=== PATIENT | male | born 1940 | race Caucasian/White ===

== ENCOUNTER 2020-05-16 05:33 | Day surgery (SDC) | payer MEDICARE, OTHER ==
[2020-05-15 15:30] LABS: BASOPHILS 0.3 % (0-2); EOSINOPHILS 4.2 % (0-7); HEMATOCRIT 36.1 % (42.0-54.0); HEMOGLOBIN 11.6 g/dL (13.5-17.5); IMMATURE GRANULOCYTES 0.6 % (0-5); LYMPHOCYTES 19.6 % (15-50); MCH 33.7 pg (26.0-34.0); MCHC 32.1 g/dL (31.0-37.0); MCV 104.9 fL (80.0-100.0); MEAN PLATELET VOLUME 9.7 fL (7.4-10.4); MONOCYTES 15.6 % (2-11); NEUTROPHILS 59.7 % (40-80); PLATELET COUNT 242 10x3/uL (130-400); RBC 3.44 10x6/uL (4.20-6.10); WBC 9.1 10x3/uL (4.8-10.8)
[2020-05-15 15:40] LABS: INR 0.94 (0.85-1.17); PROTIME 12.5 SECONDS (11.6-15.0)
[2020-05-15 16:02] LABS: ANION GAP 10.9 mmol/L (8-16); CALCIUM 9.4 mg/dL (8.5-10.1); CARBON DIOXIDE 28.1 mmol/L (21.0-32.0); CREATININE - SERUM 5.9 mg/dL (0.6-1.3)
[~2020-05-16] VITALS: Ht 174 cm; Wt 77.6 kg
[~2020-05-16 05:33] MED LIST: ALLER-CHLOR4 MG PO; BAYER CHEWABLE81 MG PO; FISH OIL 1,0001 CA1 PO; HYDROCODON-ACE1 EAC7 PO; ISOSORBIDE DINI30 MG PO; LASIX80 MG PO; LISINOPRIL40 MG PO; NEPHRO-VITE RX1 TAB; NORVASC10 MG PO; OMEPRAZOLE40 MG PO; PHOSLO667 MG PO; PLAVIX75 MG PO; RENVELA800 MG PO; TOPROL XL25 MG PO; ZOCOR40 MG PO; ZYLOPRIM100 MG PO
[2020-05-16 06:48] VITALS: Ht 174 cm; Wt 77.6 kg
[2020-05-16] MEDS ORDERED: ULTRAM50 MG PO (11:48)
--- NOTE | 2020-05-18 08:13 | OP ---
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 OPERATION PERFORMED: Open revision without thrombectomy of left arm brachiocephalic arteriovenous fistula and fistulogram. SURGEON: Melody Burns MD ANESTHESIA: General endotracheal per LEASING MANAGER. REFERRING PHYSICIAN: Dr. Segundo in [place]. PREOPERATIVE NOTE: Mr. Mora is a 80-year-old white male patient from [place], [place]. He was referred to me by Dr. Segundo. 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 The skin overlying the aneurysms is depigmented and thin and shiny, not necessarily completely or fixed or attached to the underlying aneurysm, but still of concern and in order to prevent any bleeding complications from occurring, I plan to essentially replace the fistula with an AV graft. DESCRIPTION OF PROCEDURE: Under general anesthesia in supine position, the patient was prepped and draped in a sterile manner. I made a transverse incision at the antecubital space and exposed the fistula and the JA segment which did have a stent in it. It was about 14 mm in diameter. I thought that would be just proximal to the stent, would be a good place for anastomosis. I made another incision somewhat obliquely over the cephalic vein in the upper arm and dissected it from surrounding structures and identified a site which I felt would be good for anastomosis. I made a counter incision laterally and between the other 2. The fistula was then clamped and divided in the antecubital space. This was done just proximal to the stented segment, so the anastomosis was not done to the stent. An end-to-end anastomosis was done between the vein and a 12-mm standard wall thickness Norman Propaten graft. The anastomosis was sealed with BioGlue and when that had cured and the clamps were released, the suture line was hemostatic. The graft and artery were then flushed with heparinized saline and clamped. The graft was pulled through a subcutaneous tunnel. The vein proximal to that new anastomosis was ligated with 0 silk. The graft was then brought through superficial subcutaneous tunnel using the counter incision. It was brought up to the most proximal incision of the arm where the fistula was again clamped and transected. It was suctioned then to empty it of blood to help hopefully keep it as small as possible and was then again ligated with 0 silk. A Propaten graft to cephalic vein end-to-end anastomosis was then done with 6-0 Prolene, that suture line also was sealed with BioGlue, and when the OPERATIVE REPORT [id number] MORA,ULAR U occluding clamps and loops were released, the suture lines were both hemostatic and excellent flow developed in the new graft. I elected not to excise the aneurysmal fistula today, but to left this clot and bring the patient back in a few weeks to excise it if he wishes that. Otherwise, it will be at least 2 weeks before the new AV graft can be accessed. In the meantime, he will require dialysis access and so I will place a HemoSplit catheter. The patient's wounds were infiltrated with 0.25% Marcaine without epinephrine and irrigated with Ancef/gentamicin solution and closed with interrupted inverted 3-0 Vicryl and running intracuticular 4-0 Stratafix and Dermabond glue. They were dressed with Maxorb Ag, Tegaderm, and Cavilon skin prep. I then examined the patient's neck with Duplex ultrasound and confirmed the right internal jugular vein was patent and of normal caliber and should be suitable for placement of a tunneled catheter. He was then completely reprepped and redraped. I made then a small incision at the base of the neck over the internal jugular vein and with continuous real-time ultrasound guidance, inserted a micropuncture needle through that incision and then to the internal jugular vein. A guidewire was inserted and then a catheter and then a wire catheter exchange was performed and serial dilators passed over an 0.038 guidewire under fluoroscopy; lastly, a peel-away dilator sheath was inserted. I had chosen a 19-cm HemoSplit catheter as generally the standard sized for a right-sided approach. The catheter was placed in a subcutaneous tunnel through a small incision beneath the clavicle and pulled up to the cervical wound and then inserted through the peel-away sheath and the peel-away sheath was removed. Repeat fluoroscopy revealed very satisfactory positioning of the catheter without any kinks or other problems. Both lumens of the catheter were then accessed and aspirated, free return of blood confirmed. They were then flushed with saline and then dilute heparin solution, clamped, and capped. The cervical incision was closed with interrupted inverted 3-0 Vicryl and Dermabond glue. The incision was dressed with Maxorb Ag, Tegaderm, and Cavilon skin prep. The catheter exit site was dressed with a chlorhexidine Biopatch and a standard CVL dressing. The patient was then awakened and in stable condition taken to the recovery room. Blood loss during the procedure was insignificant and un-replaced. Sponges, instruments, and needles were accounted for. No drain was used and no surgical specimen was submitted for histopathology. PLAN: I will plan on seeing the patient back in my office next week and as I said, we will plan to return him to the operating room in a few weeks to excise the thrombosed aneurysmal fistula if he desires and then he should be able to begin using the new AV graft for dialysis access in 2-4 weeks. TRANSINT:[id number] Voice Confirmation ID: [id number] DOCUMENT ID: [id number] cc: Marilee Ward in [place], [place]. MELODY BURNS MD at 0813 CC: GIA SEGUNDO MD [id number] DICTATION DATE: 05/16/20 172 LINUX SYSTEM ADMIN: 05/17/20 0236 [facility] 05/16/20 [facility] [address] [place] [address]
== END 2020-05-16 16:00 | disposition home or self-care (01) ==
LOC: D.OPS 05:33
PROVIDERS: Surgery; ATTEND Internal Medicine Nephrology
DX: N18.6 End stage renal disease (principal); Z99.2 Dependence on renal dialysis

== ENCOUNTER 2020-11-14 06:58 | Day surgery (SDC) | payer MEDICARE, OTHER ==
[~2020-11-14] VITALS: Ht 172.7 cm; Wt 77.3 kg
--- NOTE | ~2020-11-14 | OP ---
PATIENT NAME: DIGNA MORA MEDICAL RECORD: [id number] :41 LOCATION:[facility] ADMISSION DATE: SURGEON: MELODY BURNS MD DATE OF OPERATION: 11/14/2020 REFERRING PHYSICIAN: Dr. 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 PROCEDURE: Excision of painful thrombosed aneurysmal AV fistula in the left arm. SURGEON: Melody Burns MD ANESTHESIA: Regional nerve block and TIVA per FORENSIC SPECIALIST. PREOPERATIVE NOTE: Mr. Mora is a 80-year-old white male patient from [place]. He is on dialysis and has been dialyzing with a left brachiocephalic AV fistula. He has had this fistula for a few years and it became quite aneurysmal and a "jeremy fistula." There were fears of potential rupture of the aneurysms and several weeks ago, I operated and essentially bypassed the aneurysmal portion with a prosthetic graft from the antecubital space up to the cephalic vein in the deltopectoral groove. I did not remove the aneurysmal portion at that time. He has been uncomfortable with this large painful mass in the left arm and wants it excised and so he has returned to the operating room to do just that. Under anesthesia in supine position, the patient was prepped and draped in sterile manner. I made a longitudinal incision directly over the remaining thrombosed fistula with its aneurysms and raised skin flaps and dissected the aneurysmal fistula from the surrounding tissues. It was transected superiorly and distally and there was no exposure of the new graft or the functioning remaining portions of the original fistula. The specimen consisted of about 10 inch long by 1-2 inch wide segment of thrombosed cephalic vein. This did create a fairly large wound. Hemostasis was obtained with electrocautery. A small amount of skin was excised and the wound closed over a 10 mm diameter flat channel drain, which was brought out with a trocar and attached to suction. The wound was irrigated with 1% lidocaine and closed with interrupted inverted 3-0 Vicryl and then a running intracuticular 4-0 Stratafix and Dermabond glue. A dressing of Maxorb AG and Tegaderm with Cavilon skin prep was then applied. Then, in the concavity over the incision surrounded by the functioning graft, I placed 4 x 4s for additional bulk padding to apply some mild pressure to the operative area and wrapped his arm with a single Kerlix rolled gauze and Coban, which I applied myself so that I was certain it was not too tight. The patient was then awakened and taken to the recovery room. Blood loss during the operation was about 50 cc, perhaps none was replaced. Sponges, instruments and needles were accounted for. One 10 mm wide flat fluted drain was used. OPERATIVE REPORT [id number] DIGNA MORA Our plan for the patient to go home today, and tomorrow the dialysis nurses need to remove the dressing from his arm, that is to remove the Kerlix and Coban and 4 x 4s leaving the Tegaderm, Maxorb AG in place and go ahead and access his graft in the usual way and perform dialysis. There is no need to reapply a pressure dressing like I have today. I have asked that he leave the original Tegaderm, Maxorb dressing intact and keep it dry and clean and not shower. He and his have been taught by our outpatient nurses how to care for the VINEET drain and empty it frequently and keep a written record of the volume of drainage. It is very likely that the drain will be able to be removed in 2-3 days. He will have an appointment to return to see me in my office in 7-10 days. He is given a prescription for 50 mg tramadol tablets, 20 of them 1 p.o. q.4 hours p.r.n. pain and 1 or 2 q.4-6 hours p.r.n. pain and also a prescription for Bactroban ointment to apply a small amount to the drain exit site at least once a day. He will continue all of his home medications including his Plavix and his usual diet and continue his dialysis schedule. TRANSINT:[id number] Voice Confirmation ID: [id number] DOCUMENT ID: [id number] MELODY BURNS MD CC: GIA SEGUNDO MD [id number] DICTATION DATE: 11/14/20 1419 REGISTERED NURSE CARDIAC: 11/14/20 2251 [facility] 11/14/20 [place] [id number] [place] [id number]
[~2020-11-14 06:58] MED LIST changes: +ULTRAM50 MG PO
[2020-11-14 07:28] LABS: BASOPHILS 0.4 % (0-2); EOSINOPHILS 6.4 % (0-7); HEMATOCRIT 32.1 % (42.0-54.0); HEMOGLOBIN 10.2 g/dL (13.5-17.5); IMMATURE GRANULOCYTES 0.3 % (0-5); LYMPHOCYTE ABS# 1.69 10x3/uL (1.32-3.57); LYMPHOCYTES 18.2 % (15-50); MCH 32.9 pg (26.0-34.0); MCHC 31.8 g/dL (31.0-37.0); MCV 103.5 fL (80.0-100.0); MONOCYTES 16.8 % (2-11); NEUTROPHIL ABS# 5.39 10x3/uL (1.78-5.38); NEUTROPHILS 57.9 % (40-80); PLATELET COUNT 234 10x3/uL (130-400); RDW 14.7 % (11.5-14.5); WBC 9.3 10x3/uL (4.8-10.8)
[2020-11-14 07:36] LABS: ANION GAP 13.2 mmol/L (8-16); CALCIUM 8.4 mg/dL (8.5-10.1); CARBON DIOXIDE 30.2 mmol/L (21.0-32.0); POTASSIUM - SERUM 4.4 mmol/L (3.5-5.1)
[2020-11-14 07:37] LABS: INR 1.15 (0.85-1.17); PROTIME 13.6 SECONDS (11.6-15.0)
[2020-11-14 08:21] VITALS: Ht 172.7 cm; Wt 77.3 kg
[2020-11-14] MEDS ORDERED: ULTRAM50 MG PO (12:10)
[2020-11-14] MEDS ORDERED: MUPIROCIN22 GM TOPICAL (12:11)
== END 2020-11-14 13:10 | disposition home or self-care (01) ==
LOC: D.OPS 06:58
PROVIDERS: ATTEND Surgery
DX: N18.6 End stage renal disease (principal); Z99.2 Dependence on renal dialysis; T82.510A Breakdown (mechanical) of surgically created arteriovenous fistula, initial encounter; T82.858A Stenosis of other vascular prosthetic devices, implants and grafts, initial encounter